=== PATIENT | female | born 1985 | race Native Hawaiian/Other Pacific Islander ===

== ENCOUNTER → 2024-06-04 07:37 | Outpatient (REF) | payer OTHER, SELFPAY | LOC: HWWDC 07:37 | PROVIDERS: ATTENDING PHYSICIAN Nurse Practitioner Adult Health; FAMILY PHYSICIAN Family Medicine | DX: Z12.31 Encounter for screening mammogram for malignant neoplasm of breast (principal) | CPT/HCPCS: 77063; 77067 ==

== ENCOUNTER 2024-08-10 21:03 | Emergency (ER) | payer OTHER, SELFPAY ==
[2024-08-10 21:06] VITALS: BP 124/83
[2024-08-10 21:31] LABS: % Eosinophils 1.9 % (0-6); % Immature Granulocytes 0.2 % (0-0.5); % Lymphocytes 25.6 % (20.5-51.1); % Neutrophils 65.3 % (42.2-75.2); Absolute Basophils 0.1 10^3/uL (0-0.2); Absolute Eosinophils 0.1 10^3/uL (0-0.7); Absolute Lymphocytes 1.5 10^3/uL (1.2-3.4); Absolute Monocytes 0.4 10^3/uL (0.1-0.6); Absolute Neutrophils 3.8 10^3/uL (1.4-6.5); Hematocrit 38.6 % (37.0-47.0); Hemoglobin 13.3 g/dL (12.0-16.0); Mean Corp Hgb Conc. 34.5 g/dL (33.0-37.0); Mean Corpuscular Hgb 29.8 pg (27.0-31.0); Mean Corpuscular Volume 86.4 fL (81.0-99.0); Nucleated Red Blood Cells % 0 %; Platelet Count 245 10^3/uL (130-400); Red Blood Cell Count 4.47 10^6/uL (4.20-5.40); Red Cell Dist. Width 12.9 % (11.5-14.5); White Blood Cell Count 5.9 10^3/uL (4.8-10.8)
[2024-08-10 21:45] LABS: ALT (SGPT) 13 U/L (0-35); AST (SGOT) 20 U/L (14-36); Albumin 4.4 g/dl (3.5-5.0); Alkaline Phosphatase 49 U/L (38-126); Blood Urea Nitrogen 13 mg/dl (7-17); Calcium 9.3 mg/dl (8.4-10.2); Carbon Dioxide 24 mmol/L (22-30); Chloride 102 mmol/L (98-107); Glucose 117 mg/dl (70-99); Potassium 3.7 mmol/L (3.5-5.1); Sodium 134 mmol/L (135-145); Total Bilirubin 0.2 mg/dl (0.2-1.3); Total Protein 7.4 g/dl (6.3-8.2); eGFR > 60.00
[2024-08-10 21:47] LABS: HCG, Serum Qualitative Screen Negative
[2024-08-10 21:55] VITALS: BMI 24.6
[2024-08-10 22:00] VITALS: BP 116/82
--- NOTE | 2024-08-10 22:29 | ED.GENMED ---
History of Present Illness
General
Chief Complaint: Numbness
Source: patient
Time Seen by Provider: 08/10/24 22:06
History of Present Illness
History of Present Illness:
This patient is a 38-year-old female presents the emergency department after experiencing a short-lived syncopal event earlier tonight. She states that she has had a headache on and off for the last 3 days. This headache was not sudden onset or
worst of life. In fact she describes it as a typical headache for her, isolated to the left side, and resolved with taking a nap or Tylenol. It has not interrupted her activities and she denies associated fever, chills, photophobia, or other
symptoms. Tonight she went out to dinner with a friend. She had a few sips of sangria and then sat down to eat, had fun doing snapper soup and developed a 'sharp' discomfort in the epigastric/left upper quadrant area. She thought she might need
to use restroom and went to the bathroom and had a bowel movement that was nonbloody. She came back to the table and still felt unwell. She describes feeling like the food 'did not sit well', associated with nausea and continued although much
milder discomfort in the upper abdominal area. She got up to go to the bathroom again and started to feel lightheaded' went down. She had a witnessed syncopal event lasting a few seconds. When she awoke there was no confusion. She had residual
nausea but otherwise no symptoms. EMS came she was assessed and she declined transport. She called her to be picked up and while in the car she started to feel tingling on the left lateral face and arm. Since arrival, this is now just
isolated to her left hand and forearm. She denies weakness, change in speech, difficulty speaking, focal weakness, feeling off balance, chest pain or pressure, palpitations, neck pain, back pain, change in vision, or other complaints. Of note,
patient recently started 2 medications about a month ago for overactive bladder. Otherwise she denies prescription medications.. Patient denies recent trauma, motor vehicle accident, etc. She specifically denies relevant family history including
vascular cardiac events
Past History
Past History
ED Past Medical History: Other (Overactive bladder)
ED Past Surgical History: and Gynecological
Social History
Tobacco: Vaping
Alcohol: Occasional
Drug: None
Personal:
Living: with family
Phy Exam
Physical Exam
Physical Exam:
GENERAL: Alert , in no apparent distress
EYE: pupils equal and reactive, EOMI, no nystagmus, no photophobia
NECK: Supple, no significant adenopathy, no midline tenderness.
ENT: o/p clr, mmm.
CARDIAC: Regular rate and rhythm, no murmurs gallops or rubs.
LUNGS: Clear breath sounds bilaterally, no acute respiratory distress, no wheezes/rales/rhonchi
ABDOMEN: Soft, questionable very mild epigastric tenderness, no r/g, no cvat
NEUROLOGICAL: Alert and oriented, no focal neuro deficits, moves all extremities equally, motor 5 out of 5, sensory intact, cranial nerves II through XII intact, [id number] normal, NIH equal to 0
SKIN: Warm and dry, skin intact.
MUSCULOSKELETAL: No edema, well perfused.
PSYCH: Normal and appropriate interaction.
Course
Orders/Labs/Results
Orders:
Orders
08/10/24 21:11
CT Head W/o Iv Contrast Urgent
Comment: left sided numbness
Reason For Exam: syncopal episode with poss head strike
08/10/24 21:12
Electrocardiogram (*1) Urgent
Reason for Study: Syncope
EKG- Treatment ONCE
Test Result ONCE
08/10/24 21:21
Complete Blood Count/With Diff Urgent
Comprehensive Metabolic Panel Urgent
HCG, Serum Qualitative Screen Urgent
Lipase Urgent
Comment: ADD ON
08/10/24 22:28
Add On- LAB Urgent
Tests Added?: lipase
US Abdomen Complete/Upper Urgent
Comment:
Reason For Exam: upper abd pain
Abnormal Lab Results
08/10/24
21:21
Sodium 134 L mmol/L
(135-145)
Glucose 117 H mg/dl
(70-99)
08/10/24 21:21
08/10/24 21:21
Vital Signs
Initial and Last Documented VS:
Initial Vital Signs
Temp Pulse Resp BP Pulse Ox
97.8 F 84 18 124/83 99
08/10/24 21:06 08/10/24 21:06 08/10/24 21:06 08/10/24 21:06 08/10/24 21:06
Last Documented Vital Signs
Temp Pulse Resp BP Pulse Ox
97.8 F 85 16 117/81 100
08/10/24 21:06 08/10/24 23:30 08/10/24 23:30 08/10/24 23:26 08/10/24 23:30
*Critical Care Note
Total Time (30-74mins, 75-104mins- exclusive of procedures): Not Applicable
Update Note
Update Note:
Patient presents to the Emergency Department with ___syncopal episode
Number and Complexity of Problems Addressed at the Encounter
� Chronic conditions affecting care:
� Acute Exacerbation and/or Progression of Chronic Illness:
� Differential Diagnosis includes: But not limited to TIA, CVA, dehydration, electrolyte disorder, gallstones, etc. etc. etc.
Amount and/or Complexity of Data to be Reviewed and Analyzed
� I performed an independent evaluation of and my interpretation is:
EKG: Reviewed by me, normal sinus rhythm, normal rate, normal axis, no acute ischemia
CT: Read by radiology NAD
Xrays:
Laboratory Studies: Generally unremarkable
Other: Ultrasound abdomen read by radiology NAD
� Review of other/old records reveals:
� Clinical information was obtained by an independent historian:
� Prescriptions/Medications Considered but not given:
� Further testing considered but not performed:
Risk of Complications and/or Morbidity or Mortality of Patient Management
� Social determinants of health affecting care:
� Discussion with other providers (PCP, Hospitalists, Consultants, etc):
� Escalation of care including admission/observation vs risk of discharge considered: 12:09 AM several reassessments of patient, she remains neurologically intact, NIH equal to 0, gait normal here. Although patient did describe
left-sided tingling, sensation is intact to light touch. She did state earlier that when lightly looked on the left side she felt it but also felt that the sensation radiated down her arm slightly? No anesthesia, no motor weakness, cranial nerves
normal, etc. etc. Long discussion with patient. In further discussion she describes a variety of symptoms over at least the last year including episodes of feeling lightheaded relieved with taking a nap, generalized fatigue, feeling like she does
not want to go outside during the winter months, unintentional weight loss, etc. While no acute abnormality to explain her symptoms noted here I did emphasize to patient that further workup is recommended and she will pursue this DERICK.
ED Attending Note
-
Portions of this chart may have been created with voice recognition software.� Occasional wrong word or��sound alike� substitutions may have occurred due to the inherent limitations of voice recognition software.
Discharge Plan
Departure
Patient Disposition: Home (Routine Discharge)
Date of Disposition: 08/11/24
Time of Disposition: 00:11
Patient with high blood pressure during this ER visit?: Yes
Condition: Good
Discharge Problem:
Syncope
Instructions: Syncope (fainting), BLOOD PRESSURE
Prescriptions:
No Action
solifenacin 5 MG tablet
5 mg PO DAILY
Referrals:
Aida Barbour, [Family Provider] - Tomorrow
Activity Restrictions/Additional Instructions:
IF YOU DEVELOP DIZZINESS, SEVERE HEADACHE, SEVERE NECK PAIN, CHEST PAIN, SHORTNESS OF BREATH, WEAKNESS, CHANGE IN SPEECH, CHANGE IN VISION, IMBALANCE OR DIFFICULTY WALKING, NUMBNESS, OR OTHER WORRISOME SIGNS, PLEASE RETURN TO THE ER IMMEDIATELY
Interventions
Interventions:
*Risk Screen - Suicide Last Done: 08/10/24 21:06
*General Assessment Last Done: 08/10/24 21:06
*Neglect/Abuse Screening Last Done: 08/10/24 21:06
*ED COVID-19 Vaccine History Last Done: 08/10/24 22:01
ED- Neurological Assessment Last Done: 08/10/24 22:02
Discharge Date and Time
Print Language: GREEK
[2024-08-10 23:01] LABS: Lipase 89 U/L (23-300)
[2024-08-10 23:26] VITALS: BP 117/81
== END 2024-08-11 00:27 | disposition home or self-care (01) ==
LOC: EMR 21:03
PROVIDERS: Student in an Organized Health Care Education/Training Program; EMERGENCY PHYSICIAN Emergency Medicine; FAMILY PHYSICIAN Family Medicine
DX: R55 Syncope and collapse (principal); F17.290 Nicotine dependence, other tobacco product, uncomplicated; R03.0 Elevated blood-pressure reading, without diagnosis of hypertension
CPT/HCPCS: 99285; 70450; 76700; 80053; 83690; 84703; 85025; 93005

== ENCOUNTER → 2024-09-05 10:07 | Outpatient (REF) | payer OTHER, SELFPAY | LOC: RCS 10:07 | PROVIDERS: ATTENDING PHYSICIAN Student in an Organized Health Care Education/Training Program | DX: R55 Syncope and collapse (principal) | CPT/HCPCS: 93225; 93226; 93306 ==